=== PATIENT | female | born 1960 | race Caucasian/White ===

== ENCOUNTER → 2019-01-07 | Outpatient (CLI) | payer BC ==
--- NOTE | 2019-01-12 15:48 | XR ---
EXAMINATION TYPE: XR chest 2V DATE OF EXAM: 01/07/2019, exam made available for review on 01/12/2019 COMPARISON: None HISTORY: 58-year-old female with cough for one year TECHNIQUE: Frontal and lateral views FINDINGS: The cardiomediastinal silhouette, aorta, and pulmonary vasculature are within normal limits. Lungs an d pleural spaces are clear. IMPRESSION: No acute cardiopulmonary process.
== END | disposition home or self-care (01) ==
LOC: RADXRYALE 11:35
PROVIDERS: ATTEND Physician Assistant
DX: R05 Cough (principal)
CPT/HCPCS: 71046

== ENCOUNTER → 2019-04-21 | Outpatient (CLI) | payer BC ==
--- NOTE | 2019-04-21 10:08 | XR ---
EXAMINATION TYPE: XR shoulder complete RT DATE OF EXAM: 04/21/2019 CLINICAL HISTORY: Right-sided pain and palpable abnormality. TECHNIQUE: Three views of the right shoulder are obtained. COMPARISON: None. FINDINGS: There is no acute fracture/dislocation evident in the right shoulder. The acromioclavicul ar and glenohumeral joint spaces appear within normal limits. No destructive process is seen of the r ight shoulder. No sclerotic or lytic focus. Mild to moderate acromioclavicular arthropathy with small marginal osteophytes and capsular hypertrophy. The visualized ribs are intact and unremarkable. IMPRESSION: There is no acute fracture or dislocation in the right shoulder. Mild to moderate acromi oclavicular arthropathy. Soft tissues are unremarkable and ultrasound or MRI with contrast would be r ecommended to evaluate the palpable abnormality. No destructive osseous process seen.
== END | disposition home or self-care (01) ==
LOC: RADXRYALE 09:19
PROVIDERS: ATTEND Physician Assistant Medical
DX: M19.011 Primary osteoarthritis, right shoulder (principal)

== ENCOUNTER 2022-05-18 12:46 | Day surgery (SDC) | payer BC ==
[2022-05-15 09:03] VITALS: BMI 22.8
[~2022-05-18 12:46] MED LIST: DEXAMETHASONE SOD PHOSPHATE 4 MG/ML 1 ML VIAL IV ONE; HYDROmorphone 0.5 MG/0.5 ML SYRINGE IVP PRN; LACTATED RINGERS 1,000 ML IV SCH; MIDAZOLAM 2 MG/2 ML VIAL IV PRN; ONDANSETRON 4 MG/2 ML VIAL IVP ONE; SCOPOLAMINE 1 MG/72 HR PATCH TRANSDERM ONE
[2022-05-18] MEDS ORDERED: PROPOFOL 10 MG/ML 20 ML VIAL IV ONE (14:27)
[2022-05-18] MEDS ORDERED: LIDOCAINE 2% INJ 20 MG/ML (2 ML VIAL) ONE (14:27)
[2022-05-18] MEDS ORDERED: GLYCOPYRROLATE 0.2 MG/ML 2 ML VIAL ONE (14:27)
[2022-05-18] MEDS ORDERED: fentaNYL (PF) 50 MCG/ML 2 ML AMP ONE (14:27)
[2022-05-18] MEDS ORDERED: MIDAZOLAM 2 MG/2 ML VIAL ONE (14:27)
[2022-05-18 15:37] VITALS: TEMP 97
--- NOTE | 2022-05-18 15:47 | P.OP ---
Date of Procedure: 05/18/22 Preoperative Diagnosis: Hallux rigidus right foot Postoperative Diagnosis: Same Procedure(s) Performed: First metatarsal phalangeal joint implant arthroplasty right foot Implants: Arthrosurface first metatarsal joint replacement with 2.5 mm x 4.5 mm offset and 9.5 mm stem Anesthesia: LILLY Surgeon: Jan Gibson Estimated Blood Loss (ml): 2 Pathology: none sent Condition: stable Disposition: PACU Description of Procedure: The patient was brought into the operating room and placed on table in the supine position. Timeout was taken to confirm correct patient identifiers, correct laterality of surgery, and correct procedure. Once the staff in the r o were in agreement with the timeout, the patient was induced and placed under general anesthesia. A well-padded tourniquet was placed on the right ankle and then 20 mL of 0.25% Marcaine plain was injected as a right ankle block. The right foot was then prepped and draped in usual manner. The foot was exsanguinated and the tourniquet inflated to 250 mmHg. Attention was directed over the dorsomedial aspect of the first metatarsal phalangeal joint. A linear incision was made between the long extensor tendon and the neurovascular bundle. The incision was deepened down to the subcutaneous tissue careful to identify, avoid, and retract any neurovascular structures and cauterize any bleeding vessels. Blunt dissection was then continued down to the first metatarsal phalangeal joint capsule. A linear capsular incision was made medial to the long extensor tendon. The capsule was then reflected from its osseous attachments of the first metatarsal head and the base of the proximal phalanx. There was significant osteophytic formation of the dorsal aspect of the base of the proximal phalanx. These areas were removed with Ronjair and smoothed with a hand rasp. Direct visualization of the articular cartilage of the first metatarsal head revealed that there was greater than 80% full-thickness wear of the articular cartilage. The distractor was placed deep to the first metatarsal head to allow for exposure of the joint. A guidewire was then placed centrally in the first metatarsal head and advanced into medullary canal parallel to the long axis. A drill was then used for the placement of the implant stem. This is drilled down to proper depth and then the hole was tapped down to proper depth. A 9.5 mm stem was then inserted and advanced down to the proper depth. The guidewire was reinserted into the stem and then the reamer designed for the 2.5 mm x 4.5 mm offset implant was used to ream until it stopped on its own once it was in contact with the stem. The wire was removed and the dorsal reamer was placed into the hole in the stem on the dorsal reaming was then completed utilizing proper technique. The instrumentation was removed and the wound irrigated thoroughly with antibiotic saline. The trial implant was inserted and placed. There was good range of motion of the first metatarsal phalangeal joint with the gliding of the sesamoids. However there was significant osteophytic formation medial plantar and dorsal. The osteophytes were all removed while the implant was still in place with a Jimmy. This is to minimize him on a bone resection which could potentially compromise where the implant would be seated. All roughened edges of then smoothed with a hand rasp and the wound irrigated with antibiotic saline. The joint was again taken through range of motion, and at this point it was smooth and not crepitant. The trial was removed and the wound is again irrigated. The permanent implant was then positioned and then the stem impacted into the stem into the first metatarsal head. The joint was taken through range of motion and was found to be smooth and not crepitant. Fluoroscopy was also used to check placement of the implant which was seated appropriately. The wound is again irrigated with antibiotic saline. The capsule was closed with 2- 0 Vicryl. The subcu closure was done with 4-0 Monocryl. And skin closure was done with 4-0 Stratafix in a running subcuticular manner. Dermal glue was applied and allowed to dry. Steri-Strips are placed across incision which is then covered with an Arthrex jumpstart dressing. A bulky dry dressings applied to the right foot. The tourniquet was released and capillary refill return to all digits on the right foot. The patient tolerated the above procedure and anesthesia well and went to recovery with vital signs stable
[2022-05-18 17:24] VITALS: PULSE 66
[2022-05-18 17:25] VITALS: BP 133/70; RESP 20
== END 2022-05-18 17:25 | disposition home or self-care (01) ==
LOC: OR 12:46
PROVIDERS: ATTEND Podiatrist
DX: M20.21 Hallux rigidus, right foot (principal); Z97.3 Presence of spectacles and contact lenses; Z83.3 Family history of diabetes mellitus; Z86.59 Personal history of other mental and behavioral disorders
CPT/HCPCS: 26530; C1713; J2250; J1100; J0690; J2405; J3010; J2704; J2001

== ENCOUNTER → 2023-02-11 | Outpatient (CLI) | payer BC ==
--- NOTE | 2023-02-11 11:51 | XR ---
EXAMINATION TYPE: XR toes RT DATE OF EXAM: 02/11/2023 11:45 AM INDICATION: Patient age:Female; 62 years old; Reason for study: [id number] RT TOE PAIN; [facility]. COMPARISON: None TECHNIQUE: The right foot was examined in the AP, oblique, and lateral projections. FINDINGS: First digit metatarsophalangeal joint arthroplasty changes. No definitive evidence for hardware loose micky. No evidence for fracture. First digit alignment is appropriate. IMPRESSION: Arthroplasty changes first digit metatarsophalangeal joint. No definitive evidence for hardware loose micky at this time. There are no priors for comparison. Correlate with prior radiographs. No evidence of acute fracture.
== END | disposition home or self-care (01) ==
LOC: RADXRYALE 11:31
PROVIDERS: ATTEND Physician Assistant
DX: M79.674 Pain in right toe(s) (principal); Z96.698 Presence of other orthopedic joint implants